=== PATIENT | female | born 1980 | race Caucasian/White ===

== ENCOUNTER 2016-04-24 22:23 | Emergency (ER) | payer MEDICAID | END 2016-04-25 03:34 | disposition home or self-care (01) | LOC: ER 22:23 | DX: J02.8 Acute pharyngitis due to other specified organisms (principal); F17.210 Nicotine dependence, cigarettes, uncomplicated; F41.1 Generalized anxiety disorder; Z79.899 Other long term (current) drug therapy | CPT/HCPCS: 36415; 85025; 86403; 87880 ==